=== PATIENT | female | born 1960 | race Caucasian/White ===

== ENCOUNTER 2022-05-17 12:26 | Inpatient (IN) | payer MEDICAID ==
[~2022-05-17] VITALS: Ht 165.1 cm; Wt 99.0 kg
[~2022-05-17 12:26] MED LIST: DIVA-112 PO; NAPR-1024 PO
[2022-05-17] MEDS ORDERED: HYDR-4396 PO (12:38)
[2022-05-17] MEDS ORDERED: GABA-1201 PO (12:38)
[2022-05-17 13:21] LABS: COVID AG,FIA SOURCE NASAL SWAB
[2022-05-17 13:40] LABS: INFLUENZA TYPE A NEGATIVE FOR TYPE A (NEGATIVE); INFLUENZA TYPE B POSITIVE FOR TYPE B (NEGATIVE)
[2022-05-17 15:00] LABS: BASOPHILS % (AUTO) 0.7 % (0.0-2.0); EOSINOPHILS % (AUTO) 3.4 % (1.0-6.0); HEMATOCRIT 39.8 % (36-46); LYMPHOCYTES # (AUTO) 1.8 K/uL (1.0-4.8); LYMPHOCYTES % (AUTO) 37.4 % (22.0-44.0); MEAN CORPUSCULAR HEMOGLOBIN 30.6 pg (26.0-34.0); MEAN CORPUSCULAR HGB CONC 32.6 G/dL (31.0-37.0); MEAN CORPUSCULAR VOLUME 94 fL (80-100); MONOCYTES # (AUTO) 0.6 K/uL (0.1-1.0); MONOCYTES % (AUTO) 12.1 % (2.0-9.0); NEUTROPHILS # (AUTO) 2.2 K/uL (1.8-7.7); NEUTROPHILS % (AUTO) 46.4 % (40.0-70.0); PLATELET COUNT (AUTO) 105 K/uL (150-450); RED BLOOD CELL COUNT(AUTO) 4.24 MIL/uL (4.00-5.20); RED CELL DISTRIBUTION WIDTH 14.3 % (11.5-14.5)
[2022-05-17 15:10] LABS: ANION GAP 5 mmol/L (8-16); CALCIUM, TOTAL 8.8 mg/dL (8.8-10.5); CARBON DIOXIDE 28 mmol/L (22-29); CHLORIDE 108 mmol/L (98-107); CREATININE 0.56 mg/dL (0.60-1.30); GLUCOSE,RANDOM 91 mg/dL (70-110); POTASSIUM 3.7 mmol/L (3.5-5.1); SODIUM SERUM 141 mmol/L (136-145); UREA NITROGEN, BLOOD 17 mg/dL (7-18)
[2022-05-17 15:11] LABS: GLOMERULAR FILTR. RATE CALC > 60 mL/min (>60)
[2022-05-17 15:16] LABS: ALANINE AMINOTRANSFERASE 21 U/L (12-78); ALBUMIN 3.2 g/dL (3.4-5.0); ALKALINE PHOSPHATASE 125 U/L (46-116); ASPARTATE AMINOTRANSFERASE 29 U/L (15-37); BILIRUBIN,TOTAL 0.4 mg/dL (0.1-1.0); CREATINE KINASE, TOTAL ONLY 60 U/L (26-192); TOTAL PROTEIN, SERUM 7.5 g/dL (6.4-8.2)
[2022-05-17 15:17] LABS: B-TYPE NATRIURETIC PEPTIDE 27 pg/mL (0-100)
[2022-05-17] MEDS ORDERED: FUROSEMIDE 20 MG/2 ML VIAL IVP ONE (15:45)
[2022-05-17] MEDS ORDERED: 0.9% SODIUM CHLORIDE 10 ML SYRINGE IVP PRN (17:00)
[2022-05-17] MEDS ORDERED: ONDANSETRON HCL 4 MG/2 ML VIAL IVP PRN ×2 (17:00→21:30)
[2022-05-17 17:05] LABS: APPEARANCE,URINE CLEAR (CLEAR); BILIRUBIN,URINE NEGATIVE (NEGATIVE); GLUCOSE, URINE (UA) NEGATIVE (NEGATIVE); KETONES,URINE NEGATIVE (NEGATIVE); LEUKOCYTE ESTERASE ,URINE SMALL (NEGATIVE); NITRATE,URINE NEGATIVE (NEGATIVE); OCCULT BLOOD,URINE NEGATIVE (NEGATIVE); PH,URINE 5.5 (5.0-8.0); PROTEIN,URINE NEGATIVE (NEGATIVE); SPECIFIC GRAVITIY, URINE 1.008 (1.003-1.030); UROBILINOGEN,URINE <=1.0 mg/dL (<=1.0)
[2022-05-17 17:16] LABS: BACTERIA,URINE None Seen /HPF (None Seen); RBC,URINE None Seen /HPF (0-2); SQUAMOUS EPITHELIAL CELL,UR Moderate /LPF (None Seen)
[2022-05-17 18:05] VITALS: BP 140/89
[2022-05-17] MEDS: ACETAMINOPHEN 325 MG TABLET PO PRN (19:00)
[2022-05-17 20:00] VITALS: BP 137/75
[2022-05-17] MEDS: BACLOFEN 10 MG TABLET PO SCH (21:24)
[2022-05-17] MEDS ORDERED: MAGNESIUM HYDROXIDE SUSPENSION 30 ML UDCUP PO PRN (21:30)
[2022-05-17] MEDS ORDERED: BISACODYL 10 MG RECTAL RECTAL SUPPOSITORY PR PRN (21:30)
[2022-05-17] MEDS: ZOLPIDEM TARTRATE 5 MG TABLET PO PRN (21:30)
[2022-05-17 23:55] VITALS: BP 136/64
[2022-05-18] VITALS (7 sets, daily range): BP systolic 112–147; BP diastolic 56–73
[2022-05-18] MEDS: HEPARIN SODIUM,PORCINE 5,000 UNITS/ML VIAL SQ SCH ×3 (00:02→16:00)
[2022-05-18] MEDS: ACETAMINOPHEN 325 MG TABLET PO PRN ×3 (01:54→08:05)
[2022-05-18 06:43] LABS: BASOPHILS % (AUTO) 0.8 % (0.0-2.0); EOSINOPHILS % (AUTO) 5.7 % (1.0-6.0); HEMATOCRIT 37.8 % (36-46); HEMOGLOBIN 12.3 g/dL (12.0-16.0); LYMPHOCYTES # (AUTO) 1.4 K/uL (1.0-4.8); MEAN CORPUSCULAR HEMOGLOBIN 30.5 pg (26.0-34.0); MEAN CORPUSCULAR HGB CONC 32.6 G/dL (31.0-37.0); MEAN CORPUSCULAR VOLUME 94 fL (80-100); MONOCYTES # (AUTO) 0.5 K/uL (0.1-1.0); MONOCYTES % (AUTO) 15.4 % (2.0-9.0); NEUTROPHILS # (AUTO) 1.2 K/uL (1.8-7.7); NEUTROPHILS % (AUTO) 37.1 % (40.0-70.0); PLATELET COUNT (AUTO) 96 K/uL (150-450); RED BLOOD CELL COUNT(AUTO) 4.04 MIL/uL (4.00-5.20); RED CELL DISTRIBUTION WIDTH 14.2 % (11.5-14.5)
[2022-05-18 07:00] LABS: ALANINE AMINOTRANSFERASE 17 U/L (12-78); ALBUMIN 2.9 g/dL (3.4-5.0); ALKALINE PHOSPHATASE 116 U/L (46-116); ANION GAP 6 mmol/L (8-16); ASPARTATE AMINOTRANSFERASE 25 U/L (15-37); BILIRUBIN,TOTAL 0.5 mg/dL (0.1-1.0); CALCIUM, TOTAL 8.7 mg/dL (8.8-10.5); CARBON DIOXIDE 27 mmol/L (22-29); CHLORIDE 108 mmol/L (98-107); CREATININE 0.47 mg/dL (0.60-1.30); GLUCOSE,RANDOM 90 mg/dL (70-110); POTASSIUM 3.9 mmol/L (3.5-5.1); SODIUM SERUM 141 mmol/L (136-145); TOTAL PROTEIN, SERUM 6.8 g/dL (6.4-8.2); UREA NITROGEN, BLOOD 16 mg/dL (7-18)
[2022-05-18 07:02] LABS: GLOMERULAR FILTR. RATE CALC > 60 mL/min (>60)
[2022-05-18] MEDS: PANTOPRAZOLE SODIUM 40 MG DR TABLET PO SCH (08:05)
[2022-05-18] MEDS: OSELTAMIVIR PHOSPHATE 75 MG CAPSULE PO SCH ×2 (08:06→20:02)
[2022-05-18] MEDS: DIVALPROEX SODIUM 500 MG DR TABLET PO SCH ×2 (08:06→20:02)
[2022-05-18] MEDS: FUROSEMIDE 20 MG/2 ML VIAL IVP SCH ×2 (09:39→20:02)
[2022-05-18] MEDS: DOCUSATE SODIUM 100 MG CAPSULE PO SCH ×2 (09:41→20:02)
[2022-05-18] MEDS: BACLOFEN 10 MG TABLET PO SCH ×2 (09:41→20:02)
[2022-05-18] MEDS: ZOLPIDEM TARTRATE 5 MG TABLET PO PRN (20:02)
[2022-05-19] MEDS: HEPARIN SODIUM,PORCINE 5,000 UNITS/ML VIAL SQ SCH ×3 (00:59→16:55)
[2022-05-19] MEDS: BENZONATATE 100 MG CAPSULE PO PRN ×2 (05:45→09:03)
[2022-05-19] MEDS: ACETAMINOPHEN 325 MG TABLET PO PRN ×2 (05:45→16:55)
[2022-05-19 06:01] VITALS: BP 136/78
[2022-05-19 07:06] VITALS: BP 132/78
[2022-05-19 08:04] LABS: BASOPHILS % (AUTO) 0.7 % (0.0-2.0); EOSINOPHILS % (AUTO) 5.3 % (1.0-6.0); HEMATOCRIT 39.9 % (36-46); LYMPHOCYTES # (AUTO) 1.5 K/uL (1.0-4.8); LYMPHOCYTES % (AUTO) 49.6 % (22.0-44.0); MEAN CORPUSCULAR HEMOGLOBIN 30.8 pg (26.0-34.0); MEAN CORPUSCULAR HGB CONC 32.6 G/dL (31.0-37.0); MEAN CORPUSCULAR VOLUME 95 fL (80-100); MONOCYTES # (AUTO) 0.3 K/uL (0.1-1.0); MONOCYTES % (AUTO) 11.4 % (2.0-9.0); PLATELET COUNT (AUTO) 100 K/uL (150-450); RED BLOOD CELL COUNT(AUTO) 4.21 MIL/uL (4.00-5.20); RED CELL DISTRIBUTION WIDTH 14.3 % (11.5-14.5)
[2022-05-19 08:24] LABS: ANION GAP 2 mmol/L (8-16); CALCIUM, TOTAL 8.7 mg/dL (8.8-10.5); CARBON DIOXIDE 31 mmol/L (22-29); CHLORIDE 107 mmol/L (98-107); CREATININE 0.49 mg/dL (0.60-1.30); GLUCOSE,RANDOM 92 mg/dL (70-110); POTASSIUM 4.3 mmol/L (3.5-5.1); SODIUM SERUM 140 mmol/L (136-145); UREA NITROGEN, BLOOD 11 mg/dL (7-18)
[2022-05-19 08:26] LABS: GLOMERULAR FILTR. RATE CALC > 60 mL/min (>60)
[2022-05-19] MEDS: DIVALPROEX SODIUM 500 MG DR TABLET PO SCH (09:03)
[2022-05-19] MEDS: DOCUSATE SODIUM 100 MG CAPSULE PO SCH (09:04)
[2022-05-19] MEDS: PANTOPRAZOLE SODIUM 40 MG DR TABLET PO SCH (09:04)
[2022-05-19] MEDS: OSELTAMIVIR PHOSPHATE 75 MG CAPSULE PO SCH (09:04)
[2022-05-19] MEDS: FUROSEMIDE 20 MG/2 ML VIAL IVP SCH (09:05)
[2022-05-19] MEDS: BACLOFEN 10 MG TABLET PO SCH (10:25)
[2022-05-19 11:35] VITALS: BP 136/72
[2022-05-19 15:20] VITALS: BP 119/72
[2022-05-19] MEDS ORDERED: OSELTAMIVIR PHOSPHATE 75 MG CAPSULE PO ONE (17:00)
[2022-05-19] MEDS ORDERED: DIVA-112 PO (17:29)
[2022-05-19] MEDS ORDERED: BACL10TA PO (17:32)
[2022-05-19] MEDS ORDERED: FURO20 PO (17:33)
[2022-05-19] MEDS ORDERED: OSEL75 PO (17:34)
[2022-05-19] MEDS ORDERED: FUROSEMIDE 20 MG TABLET PO SCH (21:00)
== END 2022-05-19 18:56 | disposition home or self-care (01) | DRG 194 ==
LOC: EMS 12:40 → 5S 16:40
PROVIDERS: ADMIT Internal Medicine; ATTEND Internal Medicine
DX: I50.33 Acute on chronic diastolic (congestive) heart failure (principal); J10.00 Influenza due to other identified influenza virus with unspecified type of pneumonia; D69.6 Thrombocytopenia, unspecified; G43.909 Migraine, unspecified, not intractable, without status migrainosus; E66.01 Morbid (severe) obesity due to excess calories; G40.909 Epilepsy, unspecified, not intractable, without status epilepticus; J45.909 Unspecified asthma, uncomplicated; Z20.822 Contact with and (suspected) exposure to COVID-19; Z68.36 Body mass index [BMI] 36.0-36.9, adult; Z88.5 Allergy status to narcotic agent; Z79.899 Other long term (current) drug therapy
CPT/HCPCS: 71045; 80048; 80053; 81001; 82550; 83880; 84484; 85025; 87804; 93005; 93306; 97116; 97162; 99291; G0378; J1644; J1940; 36415-L1; 36415-TC

== ENCOUNTER 2022-05-29 13:26 | Emergency (ER) | payer MEDICAID ==
[~2022-05-29] VITALS: Ht 162.6 cm; Wt 104.5 kg
[~2022-05-29 13:26] MED LIST changes: +BACL10TA PO; +FURO20 PO; +GABA-1201 PO; +HYDR-4396 PO; +OSEL75 PO
[2022-05-29] MEDS: HYDROCODONE/ACETAMINOPHEN 5-325 MG TABLET PO ONE ×2 (15:13→15:29)
[2022-05-29] MEDS ORDERED: KETOROLAC TROMETHAMINE 30 MG/ML VIAL IM ONE (15:30)
[2022-05-29 15:34] LABS: BASOPHILS % (AUTO) 0.7 % (0.0-2.0); EOSINOPHILS % (AUTO) 5.1 % (1.0-6.0); HEMATOCRIT 35.8 % (36-46); HEMOGLOBIN 11.8 g/dL (12.0-16.0); LYMPHOCYTES # (AUTO) 1.5 K/uL (1.0-4.8); LYMPHOCYTES % (AUTO) 45.5 % (22.0-44.0); MEAN CORPUSCULAR HEMOGLOBIN 30.6 pg (26.0-34.0); MEAN CORPUSCULAR HGB CONC 32.9 G/dL (31.0-37.0); MEAN CORPUSCULAR VOLUME 93 fL (80-100); MONOCYTES # (AUTO) 0.4 K/uL (0.1-1.0); MONOCYTES % (AUTO) 12.2 % (2.0-9.0); NEUTROPHILS # (AUTO) 1.2 K/uL (1.8-7.7); NEUTROPHILS % (AUTO) 36.5 % (40.0-70.0); PLATELET COUNT (AUTO) 92 K/uL (150-450); RED BLOOD CELL COUNT(AUTO) 3.85 MIL/uL (4.00-5.20); RED CELL DISTRIBUTION WIDTH 14.2 % (11.5-14.5)
[2022-05-29 15:42] LABS: ANION GAP 10 mmol/L (8-16); CALCIUM, TOTAL 8.9 mg/dL (8.8-10.5); CARBON DIOXIDE 25 mmol/L (22-29); CHLORIDE 109 mmol/L (98-107); CREATININE 0.45 mg/dL (0.60-1.30); GLOMERULAR FILTR. RATE CALC > 60 mL/min (>60); GLUCOSE,RANDOM 106 mg/dL (70-110); POTASSIUM 3.9 mmol/L (3.5-5.1); SODIUM SERUM 144 mmol/L (136-145); UREA NITROGEN, BLOOD 15 mg/dL (7-18)
[2022-05-29 15:48] LABS: ALANINE AMINOTRANSFERASE 15 U/L (12-78); ALBUMIN 2.9 g/dL (3.4-5.0); ALKALINE PHOSPHATASE 111 U/L (46-116); ASPARTATE AMINOTRANSFERASE 21 U/L (15-37); BILIRUBIN,TOTAL 0.3 mg/dL (0.1-1.0); TOTAL PROTEIN, SERUM 6.9 g/dL (6.4-8.2)
[2022-05-29 20:47] VITALS: BP 129/73
== END 2022-05-29 21:31 | disposition home or self-care (01) ==
LOC: EMS 13:33
DX: M19.90 Unspecified osteoarthritis, unspecified site (principal); J45.909 Unspecified asthma, uncomplicated; G43.909 Migraine, unspecified, not intractable, without status migrainosus; R56.9 Unspecified convulsions; M85.80 Other specified disorders of bone density and structure, unspecified site; Z88.5 Allergy status to narcotic agent
CPT/HCPCS: 73700; 80053; 85025; 96372; 99284; J1885

== ENCOUNTER 2022-06-07 15:42 | Emergency (ER) | payer MEDICAID ==
[~2022-06-07] VITALS: Ht 170.2 cm; Wt 113.6 kg
[~2022-06-07 15:42] MED LIST changes: -NAPR-1024 PO; -OSEL75 PO
[2022-06-07] MEDS ORDERED: BENZ200C53 PO (17:49)
[2022-06-07] MEDS ORDERED: FLUT1AER4 IH (17:49)
[2022-06-07] MEDS ORDERED: HYDR-4065 PO (17:49)
[2022-06-07] MEDS ORDERED: AMMO140C4 TP (17:49)
[2022-06-07] MEDS ORDERED: SODIUM CHLORIDE 0.9% 500 ML IV ONE (19:15)
[2022-06-07] MEDS ORDERED: ONDANSETRON HCL 4 MG/2 ML VIAL IVP ONE (19:15)
[2022-06-07] MEDS ORDERED: KETOROLAC TROMETHAMINE 30 MG/ML VIAL IVP ONE (19:15)
[2022-06-07] MEDS ORDERED: SODIUM CHLORIDE 0.9% 100 ML ONE (19:16)
[2022-06-07] MEDS ORDERED: IOHEXOL 300 MG/ML 100 ML VIAL ONE (19:16)
[2022-06-07 19:22] LABS: BASOPHILS % (AUTO) 0.6 % (0.0-2.0); EOSINOPHILS % (AUTO) 3.2 % (1.0-6.0); HEMATOCRIT 38.5 % (36-46); HEMOGLOBIN 12.5 g/dL (12.0-16.0); LYMPHOCYTES # (AUTO) 1.3 K/uL (1.0-4.8); LYMPHOCYTES % (AUTO) 36.1 % (22.0-44.0); MEAN CORPUSCULAR HEMOGLOBIN 30.3 pg (26.0-34.0); MEAN CORPUSCULAR HGB CONC 32.5 G/dL (31.0-37.0); MEAN CORPUSCULAR VOLUME 93 fL (80-100); MONOCYTES # (AUTO) 0.6 K/uL (0.1-1.0); MONOCYTES % (AUTO) 15.7 % (2.0-9.0); NEUTROPHILS # (AUTO) 1.7 K/uL (1.8-7.7); NEUTROPHILS % (AUTO) 44.4 % (40.0-70.0); PLATELET COUNT (AUTO) 102 K/uL (150-450); RED BLOOD CELL COUNT(AUTO) 4.14 MIL/uL (4.00-5.20); RED CELL DISTRIBUTION WIDTH 14.4 % (11.5-14.5)
[2022-06-07 19:31] LABS: ANION GAP 7 mmol/L (8-16); CALCIUM, TOTAL 9.2 mg/dL (8.8-10.5); CARBON DIOXIDE 29 mmol/L (22-29); CHLORIDE 106 mmol/L (98-107); CREATININE 0.44 mg/dL (0.60-1.30); GLUCOSE,RANDOM 88 mg/dL (70-110); POTASSIUM 4.1 mmol/L (3.5-5.1); SODIUM SERUM 142 mmol/L (136-145); UREA NITROGEN, BLOOD 14 mg/dL (7-18)
[2022-06-07 19:32] LABS: GLOMERULAR FILTR. RATE CALC > 60 mL/min (>60)
[2022-06-07 19:37] LABS: ALANINE AMINOTRANSFERASE 19 U/L (12-78); ALBUMIN 3.2 g/dL (3.4-5.0); ALKALINE PHOSPHATASE 106 U/L (46-116); ASPARTATE AMINOTRANSFERASE 29 U/L (15-37); BILIRUBIN,TOTAL 0.3 mg/dL (0.1-1.0); LIPASE 87 U/L (73-393); TOTAL PROTEIN, SERUM 7.9 g/dL (6.4-8.2)
[2022-06-07 22:37] VITALS: BP 138/58
== END 2022-06-07 23:11 | disposition home or self-care (01) ==
LOC: EMS 15:42
DX: K52.9 Noninfective gastroenteritis and colitis, unspecified (principal); R10.9 Unspecified abdominal pain; J45.909 Unspecified asthma, uncomplicated; G43.909 Migraine, unspecified, not intractable, without status migrainosus; R56.9 Unspecified convulsions; M85.88 Other specified disorders of bone density and structure, other site
CPT/HCPCS: 99285; 74177; 96374; 96361; 96375; 80053; 83690; 85025; J1885; J2405; J7050; J7040; Q9967; 36415-L1; 36415-TC

== ENCOUNTER 2023-12-08 19:09 | Emergency (ER) | payer MEDICAID ==
[~2023-12-08] VITALS: Ht 165.1 cm; Wt 85.0 kg
[~2023-12-08 19:09] MED LIST changes: +AMMO140C4 TP; +BENZ200C53 PO; +FLUT1AER4 IH; +HYDR-4065 PO; -HYDR-4396 PO
[2023-12-08 19:14] VITALS: BP 137/69; PULSE 92; RESP 20; TEMP 98.2
[2023-12-08] MEDS: DiphenhydrAMINE HCL 25 MG/10 ML SOLUTION UDCUP PO ONE (21:09)
[2023-12-08] MEDS: KETOROLAC TROMETHAMINE 60 MG/2 ML VIAL IM ONE (21:10)
[2023-12-08] MEDS: BACLOFEN 10 MG TABLET PO ONE (21:11)
[2023-12-08] MEDS: HYDROCODONE/ACETAMINOPHEN 5-325 MG TABLET PO ONE (21:11)
== END 2023-12-08 22:23 | disposition home or self-care (01) ==
LOC: EMS 19:11
DX: G89.29 Other chronic pain (principal); M54.50 Low back pain, unspecified; J45.909 Unspecified asthma, uncomplicated; G43.909 Migraine, unspecified, not intractable, without status migrainosus; Z88.5 Allergy status to narcotic agent
CPT/HCPCS: 99284; 96372; J1885